=== PATIENT | male | born 1985 | race Caucasian/White ===

== ENCOUNTER → 2017-09-16 11:31 | Outpatient (CLI) | payer BC, SELFPAY ==
[2017-09-16 14:11] LABS: Hematocrit 45.1 % (40-54); Hemoglobin 15.2 g/dl (13.0-16.5); Mean Corp Hgb Conc 33.7 g/gl (32-36); Mean Corpuscular Hgb 29.8 pg (27.0-32.0); Mean Corpuscular Volume 88.4 fL (80-94); Mean Platelet Vol. 10.7 fl (6.2-12.0); Platelet Count 265 K/mm3 (150-450); RBC Distribution Width CV 11.8 % (11.6-14.6); RBC Distribution Width SD 37.8 fl (35.1-43.9); Scan Indicated on CBC? Y/N NO; White Blood Count 6.2 K/mm3 (4.4-11.0)
[2017-09-16 14:33] LABS: Vitamin B12 461 pg/mL (211-911); Vitamin D,25 Hydroxy 25.6 ng/mL (29.95-100.01)
[2017-09-16 14:43] LABS: ALB/GLOB Ratio 1.2 RATIO (0.9-2.4); AST(SGOT) 17 U/L (15-37); Alanine Aminotransfer ALT/SGPT 35 U/L (16-61); Albumin, Serum 4.4 g/dL (3.2-5.0); Alkaline Phosphatase 48 U/L (45-117); Anion Gap 9 (5-15); BUN 18 mg/dL (7-18); BUN/Creat Ratio 16.8 RATIO (10-20); Chloride 103 mmol/L (98-107); Creatinine, Serum 1.07 mg/dL (0.70-1.30); EST Glomerular Filtration Rate 84 mL/min (>60); Est Glom Filt Rate - Afr Amer 102 mL/min (>60); Ferritin 78 ng/mL (26-388); Globulin 3.8 g/dL (2.2-4.2); Glucose 78 mg/dL (74-106); Potassium 4.1 mmol/L (3.5-5.1); Protein, Total 8.2 g/dL (6.4-8.2); Sodium Level 140 mmol/L (136-145)
[2017-09-21 15:08] LABS: Testosterone, Free 10.64 ng/dL (5.00-21.00)
[2017-09-22 11:59] LABS: Testosterone, Total 380 ng/dL (264-916)
== END ==
PROVIDERS: Family Provider Family Medicine; PCP Family Medicine; Visit Provider Family Medicine
DX: R68.82 Decreased libido (principal); G47.9 Sleep disorder, unspecified
CPT/HCPCS: 36415; 80053; 82306; 82607; 82728; 82746; 84402; 84403; 84443; 85027

== ENCOUNTER → 2019-10-05 09:33 | Outpatient (CLI) | payer BC, SELFPAY ==
[2019-10-05 12:54] LABS: Absolute Lymphocyte Count 2.23 X10^3/uL (0.83-4.51); Absolute Neutrophil Count 4.7 X10^3/uL (2.0-7.7); Basophil# 0.04 X10^3/uL; Basophil% 0.5 % (0-1); Eosinophil# 0.15 X10^3/uL; Eosinophils% 1.9 % (0-5); Hemoglobin 15.5 g/dL (13.0-16.5); Lymphocyte # 2.23 X10^3/ul (4.0); Lymphocyte % 28.5 % (19-41); Mean Corpuscular Hgb 29.9 pg (27.0-32.0); Mean Corpuscular Volume 90.6 fL (80-94); Mean Platelet Vol. 11.3 fl (6.2-12.0); Monocyte# 0.68 X10^3/uL; Monocyte% 8.7 % (0-10); NRBC Flagged by Analyzer 0 % (0-5); Neutrophil % 60.1 % (47-70); Platelet Count 319 K/mm3 (150-450); RBC Distribution Width CV 12.3 % (11.6-14.6); RBC Distribution Width SD 40.4 fl (35.1-43.9); Red Blood Count 5.19 M/mm3 (4.6-6.2); White Blood Count 7.8 K/mm3 (4.4-11.0)
[2019-10-05 13:30] LABS: Anion Gap 7 (5-15); BUN 22 mg/dL (7-18); BUN/Creat Ratio 22.7 RATIO (10-20); Calcium,Total 9.1 mg/dL (8.5-10.1); Chloride 103 mmol/L (98-107); Cholesterol 201 mg/dL (200); Creatinine, Serum 0.97 mg/dL (0.70-1.30); EST Glomerular Filtration Rate 93 mL/min (>60); Est Glom Filt Rate - Afr Amer 113 mL/min (>60); Glucose 86 mg/dL (74-106); High Density Lipoprotein 49 mg/dL; Sodium Level 136 mmol/L (136-145); Thyroid Stim Hormone (TSH) 1.58 uIU/mL (0.358-3.74); Triglycerides 148 mg/dL; Very Low Density Lipoprotein 30 mg/dL (5-40)
== END ==
PROVIDERS: PCP Family Medicine; Visit Provider Family Medicine
DX: F52.0 Hypoactive sexual desire disorder (principal); Z13.220 Encounter for screening for lipoid disorders
CPT/HCPCS: 36415; 80048; 80061; 84443; 85025

== ENCOUNTER → 2019-10-10 10:54 | Outpatient (CLI) | payer BC, SELFPAY ==
--- NOTE | 2019-10-10 11:00 | RAD_ITS ---
STUDY: X-RAY - LEFT KNEE REASON FOR EXAM: Pain, no specific injury. TECHNIQUE: 4 view(s) of the knee. COMPARISON: Radiographs 07/30/2015 and 12/02/2010. FINDINGS: Normal visualized distal femur. There is mild chronic healed fracture deformity of the medial tibial plateau as on the prior study. Normal proximal tibiofibular articulation. Normal medial femorotibial compartment. Normal lateral femorotibial compartment. Normal patellofemoral articulation. The soft tissue structures are unremarkable. RAD/Knee 4 or More Views IMPRESSION: Mild chronic healed fracture deformity of the medial tibial plateau. Electronically Signed: Willis Conley MD at 12:11 EDT Tel , Service support ,
== END ==
PROVIDERS: PCP Family Medicine; Referring Provider Orthopaedic Surgery; Visit Provider Orthopaedic Surgery
DX: M25.562 Pain in left knee (principal)
CPT/HCPCS: 73564

== ENCOUNTER → 2019-10-14 18:14 | Outpatient (CLI) | payer BC, SELFPAY ==
--- NOTE | 2019-10-14 18:20 | MRI_ITS ---
STUDY: MRI LEFT KNEE REASON FOR EXAM: Male, 34 years old. Pain. TECHNIQUE: Standardized fat and water weighted pulse sequences were obtained in all 3 orthogonal planes. COMPARISON: X-ray October 10, 2019 FINDINGS: Normal medial meniscus. There is diffuse, greater than 50% thickness articular cartilage loss of the medial femorotibial compartment. There is reactive marrow edema and cystic change of the medial tibial plateau. Normal medial collateral ligamentous complex (MCL). Normal distal semimembranosus, gracilis and semitendinosus tendons. Normal lateral meniscus. Normal hyaline cartilage of the lateral femorotibial compartment. Normal lateral femoral condyle and tibial plateau. Normal proximal tibiofibular articulation. Normal lateral collateral (fibular) ligament. Normal popliteus tendon. Normal biceps femoris tendon. Normal anterior cruciate ligament (ACL). Normal posterior cruciate ligament (PCL). There is arthrosis of the patellofemoral articulation. Normal hyaline cartilage of the patellofemoral compartment. Normal medial and lateral patellar retinaculum. Normal quadriceps tendon. Normal patellar tendon. Normal Hoffa''s fat pad. There is a small volume joint effusion. The soft tissues are unremarkable. The otherwise visualized osseous structures are unremarkable. MRI/Lower Ext Joint Only (Routine) IMPRESSION: No ligamentous or meniscal tear. Degenerative change of the medial and patellofemoral compartments. Joint effusion. Electronically Signed: Dawson Velasquez MD at 8:14 EDT , Service support ,
== END ==
PROVIDERS: PCP Family Medicine; Referring Provider Orthopaedic Surgery; Visit Provider Orthopaedic Surgery
DX: M23.92 Unspecified internal derangement of left knee (principal)
CPT/HCPCS: 73721

== ENCOUNTER 2019-11-16 08:30 | Outpatient (RCR) | payer BC, SELFPAY ==
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
--- NOTE | 2020-04-04 11:04 | HP.PT.NRP ---
SUZAN VASQUEZ was seen in my office for initial evaluation on 11/04/19. The following Plan of Care was established for this patient: Initial Frequency: 2x /Week Initial Duration: 4 Weeks Patient/Client Instruction: Educate patient on: Condition, Plan of Care For the Purpose of:: To decrease pain, To increase ROM, To increase oxygenation perfusion, To improve muscle performance and motor function, To increase tolerance to activity/condition/position, To improve performance and independence with ADL's, To improve ability of physical actions for home/community/work/leisure, To improve health of tissue, To improve ability to perform tasks related to life management Therapeutic Exercise to Include: Strength training, Power training, Endurance training, Balance training For the Purpose of:: To decrease pain, To increase ROM, To improve muscle performance and motor function, To improve ability to perform ADL's, To increase tolerance to activity/condition/position, To improve performance and independence with ADL's, To improve ability of physical actions for home/community/work/leisure, To improve health of tissue, To decrease soft tissue restriction TENS: Yes IF ES: Yes Cryotherapy (ice pack, ice massage): Yes Thermo therapy (hot pack): Yes For the Purpose of:: To decrease pain, To improve nutrient delivery to tissue, To increase oxygenation perfusion, To improve health of tissue, To decrease soft tissue restriction This patient was last seen in our office . Pertinent comments regarding their Physical therapy will appear below: Patient seen for PT for left knee pain OA for ROM/strength thus is d/c to hep . Doing good At this point I will be discontinuing this patient from physical therapy. I would be happy to see this patient again in the future if found appropriate by the physician. Thank you! Talon Jones, PT, Cert MDT, OCS
== END 2019-11-16 19:00 | disposition home or self-care (01) ==
LOC: PT 08:30
PROVIDERS: PCP Family Medicine; Referring Provider Orthopaedic Surgery; Visit Provider Orthopaedic Surgery
DX: M17.12 Unilateral primary osteoarthritis, left knee (principal)
CPT/HCPCS: 97110; 97161

== ENCOUNTER → 2020-08-17 09:15 | Outpatient (CLI) | payer BC, SELFPAY ==
--- NOTE | 2020-08-17 09:23 | RAD_ITS ---
STUDY: AIR-CONTRAST BARIUM ESOPHAGRAM REASON FOR EXAM: Male, 35 years old. DYSPHAGIA RADIATION DOSAGE (If Supplied By Facility): CTDIvol = ( ) mGy, DLP = ( ) mGycm. Individualized dose optimization techniques were used for this CT.? FLUOROSCOPY TIME (if supplied): ( 1:10 ) minutes/seconds TECHNIQUE: Air-contrast COMPARISON: None. FINDINGS: Swallowing was initiated normally. No nasopharyngeal reflux or aspiration. No Zenker''s diverticulum noted on the lateral view. Normal peristaltic activity noted in the esophagus. There is a minimal amount of GE reflux but no evidence of a hiatal hernia or intraesophageal reflux. A 13 mm barium pill passed through the esophagus without difficulty. RAD/Esophagus Dual Contrast IMPRESSION: Reflux Electronically Signed: Yung Maxwell MD at 10:32 EDT , Service support ,
== END ==
PROVIDERS: PCP Family Medicine; Referring Provider Family Medicine; Visit Provider Family Medicine
DX: R13.10 Dysphagia, unspecified (principal)
CPT/HCPCS: 74221

== ENCOUNTER → 2020-10-25 13:55 | Outpatient (CLI) | payer BC, SELFPAY ==
--- NOTE | 2020-10-25 13:57 | US_ITS ---
STUDY: SCROTUM ULTRASOUND REASON FOR EXAM: Male, 35 years old. Left scrotal pain TECHNIQUE: Ultrasound evaluation of the scrotum was performed with color Doppler and static powell-scale imaging. COMPARISON: None. FINDINGS: RIGHT TESTICLE INTRATESTICULAR: There is a normal size of the right testicle. The right testicle measures 5.0 x 3.1 x 2.6 cm. There is a homogenous echotexture. There is normal arterial and normal venous vascularity. There is no demonstrated right testicular mass or cyst. There are microcalcifications EXTRATESTICULAR: The epididymis is normal in size. The epididymis head measures 1.3 cm. There is normal vascularity of the epididymis. There is a 0.5 cm epididymal cyst There is no demonstrated hydrocele. There is no demonstrated varicocele. There is no demonstrated extratesticular mass or cyst. LEFT TESTICLE INTRATESTICULAR: There is a normal size of the left testicle. The left testicle measures 4.6 x 3.1 x 2.5 cm. There is a homogenous echotexture. There is normal arterial and normal venous vascularity. There is no demonstrated left testicular mass or cyst. EXTRATESTICULAR: The epididymis is normal in size. The epididymis head measures 1.4 cm. There is normal vascularity of the epididymis. There is a 0.5 cm epididymal cyst There is a small hydrocele. There is no demonstrated varicocele. There is no demonstrated extratesticular mass or cyst. Hooker Laster notes that the patient''s area of pain in the left testicle corresponds to the epididymal cyst. US/Testicular with Arterial Flow IMPRESSION: No sonographic evidence of intratesticular mass or torsion. There are microcalcifications noted in the right testicle. Bilateral subcentimeter epididymal cysts Small left hydrocele Electronically Signed: Yung Maxwell MD at 8:05 EDT , Service support ,
== END ==
PROVIDERS: PCP Family Medicine; Referring Provider Family Medicine; Visit Provider Family Medicine
DX: N45.1 Epididymitis (principal)
CPT/HCPCS: 76870; 93976